=== PATIENT | female | born 1945 | race Caucasian/White ===

== ENCOUNTER → 2017-03-28 | Outpatient (CLI) | payer MEDICARE ==
[~2017-03-28] MED LIST: ALN70T PO; ALPR.5T PO
--- NOTE | 2017-03-29 16:54 | Diagnostic Imaging Report ---
EXAMINATION: Bilateral screening mammogram 2D views with tomosynthesis The current study was also evaluated with a Computer Aided Detection (CAD) system. INDICATION: Screening. No current complaints stated on the questionnaire. COMPARISON: 03/02/2016. FINDINGS: The breasts are composed of scattered fibroglandular densities. Benign-appearing calcifications are seen. There is a 6 mm asymmetry along the upper aspect of the right breast with no definite correlating lesion on the CC projection. The left breast demonstrates no definite change. IMPRESSION: Focal compression view and ultrasound evaluation for upper right breast asymmetry is recommended. ACR BI-RADS Category 0: Incomplete. (Needs additional imaging evaluation). Result letter will be mailed to the patient. Note: At least 10% of breast cancer is not imaged by mammography. Dictated by: Dictated on workstation # [id number]
== END ==
LOC: RAD 08:35
DX: Z12.31 Encounter for screening mammogram for malignant neoplasm of breast (principal)
CPT/HCPCS: 77067

== ENCOUNTER → 2017-04-04 | Outpatient (CLI) | payer MEDICARE ==
--- NOTE | 2017-04-04 21:59 | Diagnostic Imaging Report ---
Right breast diagnostic mammogram and tomography evaluation. The current study was also evaluated with a Computer Aided Detection (CAD) system. COMPARISON: 03/28/17. INDICATION: Asymmetry along the upper aspect of the right breast. FINDINGS: Focal compression views demonstrate less prominent asymmetry in the upper aspect of the right breast. This is in favor of summation artifact of parenchyma. IMPRESSION: Additional evaluation with focal compression views is in favor of summation artifact of parenchyma. Ultrasound evaluation pending. ACR BI-RADS Category 0: Incomplete. (Needs additional imaging evaluation). Result letter will be mailed to the patient. Note: At least 10% of breast cancer is not imaged by mammography. Dictated by: Dictated on workstation # [id number]
--- NOTE | 2017-04-04 22:04 | Diagnostic Imaging Report ---
Right breast ultrasound. INDICATION: Asymmetry in the upper aspect of the right breast. FINDINGS: The upper aspect of the right breast in retroareolar region demonstrate no underlying abnormality. IMPRESSION: Negative study. The asymmetry seen on mammography is likely related to summation artifact of parenchyma. Annular screening mammogram is recommended. ACR BI-RADS Category 1: Negative. Dictated by: Dictated on workstation # [id number]
== END ==
LOC: RAD 08:06
PROVIDERS: ATTEND Nurse Practitioner Family
DX: N64.89 Other specified disorders of breast (principal)

== ENCOUNTER → 2017-09-05 | Outpatient (CLI) | payer MEDICARE ==
--- NOTE | 2017-09-05 18:28 | Diagnostic Imaging Report ---
INDICATION: Fall with pain under right breast referring around to back. FINDINGS: The heart size is normal. The lungs are clear. There is no pleural effusion or pneumothorax. Mediastinum is unremarkable. No definite displaced rib fractures are appreciated. IMPRESSION: No acute cardiopulmonary abnormality. No displaced rib fractures. Dictated by: Dictated on workstation # [id number]
== END ==
LOC: RAD 14:20
PROVIDERS: ATTEND Nurse Practitioner Family
DX: R07.81 Pleurodynia (principal); W19.XXXA Unspecified fall, initial encounter
CPT/HCPCS: 71111

== ENCOUNTER → 2017-10-20 | Outpatient (CLI) | payer MEDICARE | LOC: CARD 08:53 | DX: I34.0 Nonrheumatic mitral (valve) insufficiency (principal) | CPT/HCPCS: 93306 ==

== ENCOUNTER → 2018-03-30 | Outpatient (CLI) | payer MEDICARE ==
--- NOTE | 2018-03-30 10:04 | Diagnostic Imaging Report ---
INDICATION: Routine screening. COMPARISON: 03/28/2017 and 03/02/2016. TECHNIQUE: 2D and 3D bilateral screening mammography was performed with CAD. FINDINGS: Scattered fibroglandular densities are identified bilaterally. The parenchymal pattern is stable. No mass or malignant appearing microcalcifications are seen. The axillae are unremarkable. IMPRESSION: No mammographic features suspicious for malignancy are No prior examinations are available for comparison. ACR BI-RADS Category 1: Negative. Result letter will be mailed to the patient. Note: At least 10% of breast cancer is not imaged by mammography. Dictated by: Dictated on workstation # [id number]
== END ==
LOC: RAD 08:15
PROVIDERS: ATTEND Nurse Practitioner Family
DX: Z12.31 Encounter for screening mammogram for malignant neoplasm of breast (principal)
CPT/HCPCS: 77067

== ENCOUNTER → 2019-04-02 | Outpatient (CLI) | payer MEDICARE, OTHER ==
--- NOTE | 2019-04-02 08:33 | Diagnostic Imaging Report ---
INDICATION: Screening The current study was also evaluated with a Computer Aided Detection (CAD) system. 3-D Tomographic imaging was also performed. Comparison made with prior examination of 03/30/2018, 03/28/2017 and 03/02/2016. FINDINGS: There are scattered fibroglandular densities bilaterally. There are benign type calcifications. There is no dominant mass, spiculated lesion or suspicious calcification identified. Skin and nipples and axilla are unremarkable. IMPRESSION: Category 2 benign ACR BI-RADS Category 2: Benign findings. Result letter will be mailed to the patient. Note: At least 10% of breast cancer is not imaged by mammography. Dictated by: Dictated on workstation # [id number]
== END ==
LOC: RAD 07:33
DX: Z12.31 Encounter for screening mammogram for malignant neoplasm of breast (principal)
CPT/HCPCS: 77067

== ENCOUNTER → 2019-05-13 | Outpatient (CLI) | payer MEDICARE, OTHER ==
--- NOTE | 2019-05-13 15:51 | Diagnostic Imaging Report ---
INDICATION: Left hip pain. TIME OF EXAM: 1:54 PM FINDINGS: Two views left hip demonstrate normal femoral acetabular alignment. There are severe osteoarthritic changes to the left hip with complete loss of the medial and superior joint space. There is sclerosis and subchondral cyst formation of the femoral head and acetabulum. No fracture or dislocation is seen. Rami appear intact. IMPRESSION: Severe osteoarthritic changes to the left hip. Dictated by: Dictated on workstation # [id number]
--- NOTE | 2019-05-13 15:52 | Diagnostic Imaging Report ---
INDICATION: Left knee pain. TIME OF EXAM: 1:55 p.m. FINDINGS: Three views of the left knee demonstrate normal alignment. Joint spaces are well maintained. The articular surfaces are smooth. No fracture, dislocation, or effusion is detected. IMPRESSION: No acute abnormality is detected. Dictated by: Dictated on workstation # [id number]
== END ==
LOC: RAD 13:29
PROVIDERS: ATTEND Nurse Practitioner Family
DX: M16.12 Unilateral primary osteoarthritis, left hip (principal); M25.562 Pain in left knee
CPT/HCPCS: 73502; 73562

== ENCOUNTER → 2020-04-09 | Outpatient (CLI) | payer MEDICARE, OTHER ==
--- NOTE | 2020-04-09 20:34 | Diagnostic Imaging Report ---
INDICATION: Routine screening. COMPARISON is made with prior mammograms from 04/02/2019 and 03/30/2018. 2-D and 3-D bilateral screening mammography was performed with CAD. Scattered fibroglandular densities are identified bilaterally. The parenchymal pattern is stable. No mass or malignant appearing microcalcifications are seen. There are benign calcifications of the right breast. Axillae are unremarkable. IMPRESSION: BI-RADS Category 2 No mammographic features suspicious for malignancy are identified. ACR BI-RADS Category 2: Benign findings. Result letter will be mailed to the patient. Note: At least 10% of breast cancer is not imaged by mammography. Dictated by: Dictated on workstation # [id number]
== END ==
LOC: RAD 10:49
DX: Z12.31 Encounter for screening mammogram for malignant neoplasm of breast (principal)
CPT/HCPCS: 77063; 77067

== ENCOUNTER → 2021-04-12 | Outpatient (CLI) | payer MEDICARE, OTHER ==
--- NOTE | 2021-04-12 10:58 | Diagnostic Imaging Report ---
INDICATION: Routine screening. COMPARISON: 04/09/2020 and 04/02/2019. TECHNIQUE: 2D and 3D bilateral screening mammography was performed with CAD. FINDINGS: Scattered fibroglandular densities are identified bilaterally. The parenchymal pattern is stable. No mass or malignant-appearing microcalcifications are seen. Benign calcifications on the right are noted. The axillae are unremarkable. IMPRESSION: No mammographic features suspicious for malignancy are identified. ACR BI-RADS Category 2: Benign findings. Result letter will be mailed to the patient. Note: At least 10% of breast cancer is not imaged by mammography. Dictated by: Dictated on workstation # [id number]
== END ==
LOC: RAD 09:15
DX: Z12.31 Encounter for screening mammogram for malignant neoplasm of breast (principal)
CPT/HCPCS: 77063; 77067

== ENCOUNTER → 2022-01-10 | Outpatient (CLI) | payer MEDICARE, OTHER ==
--- NOTE | 2022-01-10 17:05 | Diagnostic Imaging Report ---
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 No acute fracture. Alignment is near-anatomic. IMPRESSION: 1. Expected appearance of a left total hip arthroplasty. Dictated by: Dictated on workstation # [id number]
== END ==
LOC: RAD 13:54
PROVIDERS: ATTEND Family Medicine
DX: M25.552 Pain in left hip (principal)
CPT/HCPCS: 73502

== ENCOUNTER → 2022-04-13 | Outpatient (CLI) | payer MEDICARE, OTHER ==
--- NOTE | 2022-04-13 21:59 | Diagnostic Imaging Report ---
INDICATION: Routine screening. COMPARISON: Prior mammograms from 04/12/2021 and 04/09/2020. EXAMINATION: 2D and 3D bilateral screening mammography was performed with CAD. The current study was also evaluated with a Computer Aided Detection (CAD) system. FINDINGS: Scattered fibroglandular densities are identified, bilaterally. The parenchymal pattern is stable. No mass or malignant-appearing microcalcifications are seen. Axillae are unremarkable. IMPRESSION: No mammographic features suspicious for malignancy are identified. ACR BI-RADS Category 1: Negative. Result letter will be mailed to the patient. Note: At least 10% of breast cancer is not imaged by mammography. Dictated by: Dictated on workstation # [id number]
== END ==
LOC: RAD 14:33
PROVIDERS: ATTEND Family Medicine
DX: Z12.31 Encounter for screening mammogram for malignant neoplasm of breast (principal)
CPT/HCPCS: 77063; 77067